=== PATIENT | male | born 1970 | race African-American/Black ===

== ENCOUNTER 2021-04-29 04:51 | Day surgery (SDC) | payer OTHER ==
[2021-04-27 14:25] VITALS: BMI 37.9
[2021-04-29 12:52] VITALS: TEMP 98
[2021-04-29 13:33] VITALS: BP 156/89; PULSE 82
== END 2021-04-29 14:16 | disposition home or self-care (01) ==
LOC: JASU-ENDO 04:51
PROVIDERS: ATTEND Internal Medicine Gastroenterology
PROC: 0DJD8ZZ Inspection of Lower Intestinal Tract, Via Natural or Artificial Opening Endoscopic (ICD-10-PCS; principal; 2021-04-29 12:00)
DX: Z12.11 Encounter for screening for malignant neoplasm of colon (principal); I10 Essential (primary) hypertension; K76.0 Fatty (change of) liver, not elsewhere classified; K21.9 Gastro-esophageal reflux disease without esophagitis; Z53.8 Procedure and treatment not carried out for other reasons

== ENCOUNTER 2022-03-15 04:20 | Day surgery (SDC) | payer OTHER ==
[2022-03-09 11:25] VITALS: BMI 39.9
[2022-03-15 09:49] VITALS: TEMP 97.2
[2022-03-15 10:24] VITALS: PULSE 76
[2022-03-15 10:29] VITALS: BP 128/76
== END 2022-03-15 10:58 | disposition home or self-care (01) ==
LOC: JASU-ENDO 04:20
PROVIDERS: ATTEND Internal Medicine Gastroenterology
PROC: 0DBK8ZX Excision of Ascending Colon, Via Natural or Artificial Opening Endoscopic, Diagnostic (ICD-10-PCS; 2022-03-15)
PROC: 0DBL8ZX Excision of Transverse Colon, Via Natural or Artificial Opening Endoscopic, Diagnostic (ICD-10-PCS; 2022-03-15)
PROC: 0DBN8ZX Excision of Sigmoid Colon, Via Natural or Artificial Opening Endoscopic, Diagnostic (ICD-10-PCS; principal; 2022-03-15 08:45)
DX: Z12.11 Encounter for screening for malignant neoplasm of colon (principal); D12.2 Benign neoplasm of ascending colon; D12.3 Benign neoplasm of transverse colon; D12.7 Benign neoplasm of rectosigmoid junction; Q43.8 Other specified congenital malformations of intestine; K64.8 Other hemorrhoids
CPT/HCPCS: 88305-TC

== ENCOUNTER 2024-03-22 04:20 | Day surgery (SDC) | payer OTHER ==
[2024-03-14 10:39] VITALS: BMI 40.6
[2024-03-22] MEDS ORDERED: LIDOCAINE HCL/PF 1% SDV 5ML VIAL ONE (07:33)
[2024-03-22] MEDS ORDERED: DEXAMETHASONE SOD PHOSPHATE 10 MG/1 ML VIAL ONE (07:33)
[2024-03-22] MEDS ORDERED: ACETAMINOPHEN 500 MG TABLET (FP) PO PRN (11:10)
[2024-03-22 13:09] VITALS: RESP 16; TEMP 97.5
[2024-03-22 13:10] VITALS: BP 167/101; PULSE 80
== END 2024-03-22 13:20 | disposition home or self-care (01) ==
LOC: JASU-SURG 04:20
PROVIDERS: ATTEND Pain Medicine Pain Medicine
DX: Z53.8 Procedure and treatment not carried out for other reasons (principal)
CPT/HCPCS: J1100

== ENCOUNTER 2024-04-05 04:06 | Day surgery (SDC) | payer OTHER ==
[2024-04-02 15:47] VITALS: BMI 39.9
[2024-04-05] MEDS ORDERED: DEXAMETHASONE SOD PHOSPHATE 10 MG/1 ML VIAL ONE (07:22)
[2024-04-05] MEDS ORDERED: LIDOCAINE HCL/PF 1% SDV 5ML VIAL ONE (07:22)
[2024-04-05 08:22] VITALS: RESP 18; TEMP 97.8
[2024-04-05] MEDS: IOHEXOL 180 MG/1 ML ML IJ ONE (10:05)
[2024-04-05] MEDS: LIDOCAINE HCL 1% PRESERVATIVE FREE - 30ML VIAL IJ ONE (10:05)
[2024-04-05] MEDS: DEXAMETHASONE SOD PHOSPHATE 10 MG/1 ML VIAL IVPUSH ONE (10:05)
[2024-04-05 11:09] VITALS: BP 135/84; PULSE 70
[2024-04-05] MEDS ORDERED: ACETAMINOPHEN 500 MG TABLET (FP) PO PRN (14:21)
== END 2024-04-05 10:40 | disposition home or self-care (01) ==
LOC: JASU-SURG 04:06
PROVIDERS: ATTEND Pain Medicine Pain Medicine
PROC: 3E0R3BZ Introduction of Anesthetic Agent into Spinal Canal, Percutaneous Approach (ICD-10-PCS; 2024-04-05)
PROC: 3E0R33Z Introduction of Anti-inflammatory into Spinal Canal, Percutaneous Approach (ICD-10-PCS; principal; 2024-04-05 10:00)
DX: M54.16 Radiculopathy, lumbar region (principal)
CPT/HCPCS: 76000-TC-FY; J1100

== ENCOUNTER 2024-05-17 04:52 | Day surgery (SDC) | payer OTHER ==
[2024-05-16 11:46] VITALS: BMI 39.9
[2024-05-17 10:07] VITALS: RESP 18
[2024-05-17] MEDS: LIDOCAINE HCL 1% PRESERVATIVE FREE - 30ML VIAL IJ ONE ×2 (12:42)
[2024-05-17] MEDS: IOHEXOL 180 MG/1 ML ML IJ ONE (12:42)
[2024-05-17] MEDS: DEXAMETHASONE SOD PHOSPHATE 10 MG/1 ML VIAL IVPUSH ONE (12:43)
[2024-05-17 14:00] VITALS: BP 147/89; PULSE 77; TEMP 97.8
== END 2024-05-17 13:10 | disposition home or self-care (01) ==
LOC: JASU-SURG 04:52
PROVIDERS: ATTEND Pain Medicine Pain Medicine
PROC: 3E0R3BZ Introduction of Anesthetic Agent into Spinal Canal, Percutaneous Approach (ICD-10-PCS; 2024-05-17)
PROC: 3E0R33Z Introduction of Anti-inflammatory into Spinal Canal, Percutaneous Approach (ICD-10-PCS; principal; 2024-05-17 11:30)
DX: M54.16 Radiculopathy, lumbar region (principal)
CPT/HCPCS: 76000-TC-FY; J1100